=== PATIENT | male | born 1950 ===

== ENCOUNTER 2022-07-20 05:51 | Day surgery (SDC) | payer OTHER ==
[~2022-07-20] VITALS: Ht 152.4 cm; Wt 81.6 kg
[2022-07-20] MEDS ORDERED: CEPHALEXIN500 MG PO (10:14)
[2022-07-20] MEDS ORDERED: CILOXAN5 ML OTIC (10:14)
== END 2022-07-20 14:35 | disposition home or self-care (01) ==
LOC: CIR.AMB 05:51
PROVIDERS: ATTEND Otolaryngology Otology & Neurotology
DX: H71.01 Cholesteatoma of attic, right ear (principal); H72.11 Attic perforation of tympanic membrane, right ear; H90.11 Conductive hearing loss, unilateral, right ear, with unrestricted hearing on the contralateral side; Z20.822 Contact with and (suspected) exposure to COVID-19; H71.93 Unspecified cholesteatoma, bilateral